=== PATIENT | male | born 1965 | race African-American/Black ===

== ENCOUNTER 2019-04-04 10:17 | Emergency (ER) | payer MEDICAID ==
[~2019-04-04] VITALS: Ht 170.2 cm; Wt 70.5 kg
[~2019-04-04 10:17] MED LIST: NOCURR
[2019-04-04] MEDS ORDERED: IBUPROFEN 600 MG TABLET PO ONE (11:15)
[2019-04-04 13:20] VITALS: BP 134/77
== END 2019-04-04 13:23 | disposition home or self-care (01) ==
LOC: EMS 10:18
DX: Z02.89 Encounter for other administrative examinations (principal); S30.810A Abrasion of lower back and pelvis, initial encounter; I10 Essential (primary) hypertension; F32.9 Major depressive disorder, single episode, unspecified; F14.90 Cocaine use, unspecified, uncomplicated; Z59.0 Homelessness; V19.9XXA Pedal cyclist (driver) (passenger) injured in unspecified traffic accident, initial encounter; Y93.89 Activity, other specified; Y92.89 Other specified places as the place of occurrence of the external cause; Y99.8 Other external cause status
CPT/HCPCS: 72170

== ENCOUNTER 2019-12-14 15:48 | Emergency (ER) | payer MEDICAID ==
[~2019-12-14] VITALS: Ht 180.3 cm; Wt 77.3 kg
[2019-12-14 17:29] LABS: BASOPHILS % (AUTO) 0.6 % (0.0-2.0); EOSINOPHILS % (AUTO) 0 % (1.0-6.0); HEMOGLOBIN 17.3 g/dL (13.5-17.5); LYMPHOCYTES # (AUTO) 0.9 K/uL (1.0-4.8); LYMPHOCYTES % (AUTO) 9.1 % (22.0-44.0); MEAN CORPUSCULAR HEMOGLOBIN 34.5 pg (26.0-34.0); MEAN CORPUSCULAR HGB CONC 32.7 G/dL (31.0-37.0); MEAN CORPUSCULAR VOLUME 105 fL (80-100); MONOCYTES # (AUTO) 0.6 K/uL (0.1-1.0); MONOCYTES % (AUTO) 6.2 % (2.0-9.0); NEUTROPHILS # (AUTO) 8.5 K/uL (1.8-7.7); NEUTROPHILS % (AUTO) 84.1 % (40.0-70.0); PLATELET COUNT (AUTO) 284 K/uL (150-450); RED BLOOD CELL COUNT(AUTO) 5.03 MIL/uL (4.50-5.90)
[2019-12-14 17:39] LABS: APPEARANCE,URINE CLEAR (CLEAR); BILIRUBIN,URINE NEGATIVE (NEGATIVE); GLUCOSE, URINE (UA) NEGATIVE (NEGATIVE); KETONES,URINE NEGATIVE (NEGATIVE); LEUKOCYTE ESTERASE ,URINE SMALL (NEGATIVE); NITRATE,URINE NEGATIVE (NEGATIVE); OCCULT BLOOD,URINE SMALL (NEGATIVE); PROTEIN,URINE SEE CONFIRM (NEGATIVE)
[2019-12-14 17:40] LABS: CALCIUM, TOTAL 9.3 mg/dL (8.8-10.5); CREATININE 2.65 mg/dL (0.60-1.30); POTASSIUM 4.6 mmol/L (3.5-5.1)
[2019-12-14 17:44] LABS: SULFOSALICYLIC ACID,URINE 3+ (Negative)
[2019-12-14 17:45] LABS: ALBUMIN 3.1 g/dL (3.4-5.0); BILIRUBIN,TOTAL 2.9 mg/dL (0.1-1.0); TOTAL PROTEIN, SERUM 6.9 g/dL (6.4-8.2)
[2019-12-14 17:46] LABS: BACTERIA,URINE Rare /HPF (None Seen); RBC,URINE 0-2 /HPF (0-2); SQUAMOUS EPITHELIAL CELL,UR Few /LPF (None Seen)
[2019-12-14] MEDS ORDERED: FUROSEMIDE 20 MG TABLET PO ONE (18:00)
[2019-12-14 18:13] VITALS: BP 150/113
== END 2019-12-14 19:11 | disposition home or self-care (01) ==
LOC: EMS 15:50
DX: I12.9 Hypertensive chronic kidney disease with stage 1 through stage 4 chronic kidney disease, or unspecified chronic kidney disease (principal); N18.9 Chronic kidney disease, unspecified; R60.0 Localized edema; R80.9 Proteinuria, unspecified; R74.0 Nonspecific elevation of levels of transaminase and lactic acid dehydrogenase [LDH]; F14.90 Cocaine use, unspecified, uncomplicated; F32.9 Major depressive disorder, single episode, unspecified; Z59.0 Homelessness
CPT/HCPCS: 87086; 93970

== ENCOUNTER 2019-12-16 10:41 | Emergency (ER) | payer MEDICAID ==
[~2019-12-16] VITALS: Ht 180.3 cm; Wt 77.3 kg
[2019-12-16] MEDS ORDERED: UNK DIURETIC PO (10:42)
[2019-12-16 10:43] VITALS: BP 156/86
== END 2019-12-16 13:19 | disposition left against medical advice (07) ==
LOC: EMS 10:41
DX: R60.0 Localized edema (principal); F32.9 Major depressive disorder, single episode, unspecified; F14.10 Cocaine abuse, uncomplicated; I10 Essential (primary) hypertension; Z76.0 Encounter for issue of repeat prescription; Z59.0 Homelessness

== ENCOUNTER 2021-03-23 18:47 | Inpatient (IN) | payer MEDICAID ==
[~2021-03-23] VITALS: Ht 180.3 cm; Wt 75.2 kg
[~2021-03-23 18:47] MED LIST changes: +UNK DIURETIC PO
[2021-03-23 19:37] LABS: APPEARANCE,URINE TURBID (CLEAR); BILIRUBIN,URINE NEGATIVE (NEGATIVE); GLUCOSE, URINE (UA) NEGATIVE (NEGATIVE); KETONES,URINE NEGATIVE (NEGATIVE); LEUKOCYTE ESTERASE ,URINE LARGE (NEGATIVE); NITRATE,URINE POSITIVE (NEGATIVE); OCCULT BLOOD,URINE SMALL (NEGATIVE); PROTEIN,URINE SEE CONFIRM (NEGATIVE)
[2021-03-23 19:52] LABS: BACTERIA,URINE Many /HPF (None Seen); RBC,URINE 0-2 /HPF (0-2); SULFOSALICYLIC ACID,URINE 1+ (Negative); WBC,URINE >100 /HPF (0-5)
[2021-03-23 19:53] LABS: SQUAMOUS EPITHELIAL CELL,UR Rare /LPF (None Seen)
[2021-03-23 20:04] LABS: BASOPHILS % (AUTO) 0.7 % (0.0-2.0); EOSINOPHILS % (AUTO) 0.9 % (1.0-6.0); HEMATOCRIT 34.5 % (41-53); HEMOGLOBIN 11.4 g/dL (13.5-17.5); LYMPHOCYTES # (AUTO) 1.3 K/uL (1.0-4.8); LYMPHOCYTES % (AUTO) 21.9 % (22.0-44.0); MEAN CORPUSCULAR HEMOGLOBIN 36.1 pg (26.0-34.0); MEAN CORPUSCULAR HGB CONC 32.9 G/dL (31.0-37.0); MEAN CORPUSCULAR VOLUME 110 fL (80-100); MONOCYTES # (AUTO) 0.5 K/uL (0.1-1.0); NEUTROPHILS # (AUTO) 4.2 K/uL (1.8-7.7); NEUTROPHILS % (AUTO) 68.5 % (40.0-70.0); PLATELET COUNT (AUTO) 303 K/uL (150-450); RED BLOOD CELL COUNT(AUTO) 3.14 MIL/uL (4.50-5.90); RED CELL DISTRIBUTION WIDTH 14.1 % (11.5-14.5)
[2021-03-23] MEDS ORDERED: CefTRIAXone 1 GM/DEXTROSE 50 ML IV ONE (20:15)
[2021-03-23 20:18] LABS: INR 1.1 (0.9-1.1); PROTHROMBIN TIME 11.4 SEC (9.4-11.6)
[2021-03-23 20:19] LABS: CALCIUM, TOTAL 8.6 mg/dL (8.8-10.5); CREATININE 2.61 mg/dL (0.60-1.30); POTASSIUM 3.9 mmol/L (3.5-5.1)
[2021-03-23 20:25] LABS: ALBUMIN 3.3 g/dL (3.4-5.0); BILIRUBIN,TOTAL 1.1 mg/dL (0.1-1.0); TOTAL PROTEIN, SERUM 7.6 g/dL (6.4-8.2)
[2021-03-23] MEDS ORDERED: FUROSEMIDE 40 MG/4 ML VIAL IVP ONE (21:00)
[2021-03-23 21:10] LABS: COVID AG,FIA SOURCE NASAL SWAB
[2021-03-23] MEDS ORDERED: HYDROCODONE/ACETAMINOPHEN 5-325 MG TABLET PO PRN (21:45)
[2021-03-23] MEDS ORDERED: ZOLPIDEM TARTRATE 5 MG TABLET PO PRN (21:45)
[2021-03-23] MEDS ORDERED: MORPHINE SULFATE 2 MG/ML SYRINGE IVP PRN (21:45)
[2021-03-23] MEDS ORDERED: ONDANSETRON HCL 4 MG/2 ML VIAL IVP PRN (21:45)
[2021-03-23] MEDS ORDERED: MAGNESIUM HYDROXIDE SUSPENSION 30 ML UDCUP PO PRN (21:45)
[2021-03-23] MEDS ORDERED: BISACODYL 10 MG RECTAL RECTAL SUPPOSITORY PR PRN (21:45)
[2021-03-23] MEDS ORDERED: ACETAMINOPHEN 325 MG TABLET PO PRN (21:45)
[2021-03-23] MEDS ORDERED: CARVEDILOL 3.125 MG TABLET PO ONE (22:30)
[2021-03-24 00:08] VITALS: BP 130/86
[2021-03-24] MEDS: HEPARIN SODIUM,PORCINE 5,000 UNITS/ML VIAL SQ SCH ×3 (01:06→16:00)
[2021-03-24] MEDS ORDERED: PNEUMOCOCCAL VACCINE POLYVALENT 0.5 ML VIAL [PPSV23] IM. ONE (01:45)
[2021-03-24 04:10] VITALS: BP 152/89
[2021-03-24 06:19] LABS: BASOPHILS % (AUTO) 0.6 % (0.0-2.0); EOSINOPHILS % (AUTO) 1.3 % (1.0-6.0); HEMATOCRIT 34.7 % (41-53); HEMOGLOBIN 11.5 g/dL (13.5-17.5); LYMPHOCYTES # (AUTO) 1.6 K/uL (1.0-4.8); LYMPHOCYTES % (AUTO) 24.5 % (22.0-44.0); MEAN CORPUSCULAR HEMOGLOBIN 35.9 pg (26.0-34.0); MEAN CORPUSCULAR HGB CONC 33.1 G/dL (31.0-37.0); MEAN CORPUSCULAR VOLUME 108 fL (80-100); MONOCYTES # (AUTO) 0.6 K/uL (0.1-1.0); MONOCYTES % (AUTO) 8.8 % (2.0-9.0); NEUTROPHILS # (AUTO) 4.1 K/uL (1.8-7.7); NEUTROPHILS % (AUTO) 64.8 % (40.0-70.0); PLATELET COUNT (AUTO) 292 K/uL (150-450)
[2021-03-24 06:33] LABS: CALCIUM, TOTAL 8.2 mg/dL (8.8-10.5); CREATININE 2.36 mg/dL (0.60-1.30); POTASSIUM 4.1 mmol/L (3.5-5.1)
[2021-03-24 07:45] VITALS: BP 164/97
[2021-03-24] MEDS: ASPIRIN 81 MG DR TABLET PO SCH (08:52)
[2021-03-24] MEDS: CARVEDILOL 6.25 MG TABLET PO SCH ×2 (08:52→20:57)
[2021-03-24] MEDS: DOCUSATE SODIUM 100 MG CAPSULE PO SCH ×2 (08:52→20:57)
[2021-03-24] MEDS: PANTOPRAZOLE SODIUM 40 MG DR TABLET PO SCH (08:52)
[2021-03-24] MEDS: LISINOPRIL 5 MG TABLET PO SCH (08:53)
[2021-03-24] MEDS: FUROSEMIDE 20 MG/2 ML VIAL IVP SCH ×2 (09:00→20:58)
[2021-03-24] MEDS ORDERED: CARVEDILOL 6.25 MG TABLET PO SCH (09:00)
[2021-03-24 11:30] VITALS: BP 160/86
[2021-03-24 16:11] VITALS: BP 159/98
[2021-03-24 20:16] VITALS: BP 142/92
[2021-03-24] MEDS: CefTRIAXone 1 GM/DEXTROSE 50 ML IV SCH (20:57)
[2021-03-24] MEDS ORDERED: SODIUM CHLORIDE 0.9% 250 ML IV ONE (21:03)
[2021-03-25] MEDS: HEPARIN SODIUM,PORCINE 5,000 UNITS/ML VIAL SQ SCH ×3 (00:12→16:00)
[2021-03-25 00:30] VITALS: BP 139/64
[2021-03-25 04:10] VITALS: BP 150/98
[2021-03-25 07:00] LABS: BASOPHILS % (AUTO) 0.6 % (0.0-2.0); EOSINOPHILS % (AUTO) 1.4 % (1.0-6.0); HEMATOCRIT 36.7 % (41-53); HEMOGLOBIN 12.1 g/dL (13.5-17.5); LYMPHOCYTES # (AUTO) 1.2 K/uL (1.0-4.8); LYMPHOCYTES % (AUTO) 21.8 % (22.0-44.0); MEAN CORPUSCULAR HEMOGLOBIN 36.1 pg (26.0-34.0); MEAN CORPUSCULAR HGB CONC 33.1 G/dL (31.0-37.0); MEAN CORPUSCULAR VOLUME 109 fL (80-100); MONOCYTES # (AUTO) 0.5 K/uL (0.1-1.0); MONOCYTES % (AUTO) 9.4 % (2.0-9.0); NEUTROPHILS # (AUTO) 3.8 K/uL (1.8-7.7); NEUTROPHILS % (AUTO) 66.8 % (40.0-70.0); PLATELET COUNT (AUTO) 286 K/uL (150-450); RED BLOOD CELL COUNT(AUTO) 3.36 MIL/uL (4.50-5.90); RED CELL DISTRIBUTION WIDTH 13.8 % (11.5-14.5)
[2021-03-25 07:21] LABS: CALCIUM, TOTAL 8.1 mg/dL (8.8-10.5); CREATININE 1.97 mg/dL (0.60-1.30); POTASSIUM 4.2 mmol/L (3.5-5.1)
[2021-03-25 07:22] VITALS: BP 156/89
[2021-03-25] MEDS: PANTOPRAZOLE SODIUM 40 MG DR TABLET PO SCH (08:38)
[2021-03-25] MEDS: ASPIRIN 81 MG DR TABLET PO SCH (08:38)
[2021-03-25] MEDS: CARVEDILOL 6.25 MG TABLET PO SCH ×2 (08:38→20:22)
[2021-03-25] MEDS: DOCUSATE SODIUM 100 MG CAPSULE PO SCH ×2 (08:38→21:00)
[2021-03-25] MEDS: LISINOPRIL 5 MG TABLET PO SCH (08:38)
[2021-03-25] MEDS: FUROSEMIDE 20 MG/2 ML VIAL IVP SCH ×2 (08:38→21:00)
[2021-03-25 11:12] VITALS: BP 124/71
[2021-03-25 13:20] LABS: AMPHET/METH SCREEN,URINE NEGATIVE (NEGATIVE); BARBITURATE SCREEN, URINE NEGATIVE (NEGATIVE); BENZODIAZEPINES SCREEN,URINE NEGATIVE (NEGATIVE); CANNABINOID SCREEN,URINE NEGATIVE (NEGATIVE); COCAINE SCREEN,URINE POSITIVE (NEGATIVE); METHADONE SCREEN, URINE NEGATIVE (NEGATIVE); OPIATE SCREEN,URINE NEGATIVE (NEGATIVE)
[2021-03-25 13:21] LABS: PHENCYCLIDINE SCREEN,URINE NEGATIVE (NEGATIVE)
[2021-03-25 15:17] VITALS: BP 132/80
[2021-03-25 20:17] VITALS: BP 145/77
[2021-03-25] MEDS: CefTRIAXone 1 GM/DEXTROSE 50 ML IV SCH (20:22)
[2021-03-26] MEDS: HEPARIN SODIUM,PORCINE 5,000 UNITS/ML VIAL SQ SCH ×3 (00:03→15:06)
[2021-03-26 00:44] VITALS: BP 136/73
[2021-03-26 04:31] VITALS: BP 138/80
[2021-03-26 05:25] LABS: BASOPHILS % (AUTO) 0.5 % (0.0-2.0); EOSINOPHILS % (AUTO) 1.4 % (1.0-6.0); HEMATOCRIT 35.1 % (41-53); HEMOGLOBIN 11.4 g/dL (13.5-17.5); LYMPHOCYTES # (AUTO) 1.4 K/uL (1.0-4.8); LYMPHOCYTES % (AUTO) 23.7 % (22.0-44.0); MEAN CORPUSCULAR HEMOGLOBIN 35.5 pg (26.0-34.0); MEAN CORPUSCULAR HGB CONC 32.5 G/dL (31.0-37.0); MEAN CORPUSCULAR VOLUME 109 fL (80-100); MONOCYTES # (AUTO) 0.5 K/uL (0.1-1.0); MONOCYTES % (AUTO) 8.6 % (2.0-9.0); NEUTROPHILS % (AUTO) 65.8 % (40.0-70.0); PLATELET COUNT (AUTO) 267 K/uL (150-450); RED BLOOD CELL COUNT(AUTO) 3.21 MIL/uL (4.50-5.90); RED CELL DISTRIBUTION WIDTH 14.2 % (11.5-14.5)
[2021-03-26 06:01] LABS: CALCIUM, TOTAL 8.2 mg/dL (8.8-10.5); CREATININE 1.72 mg/dL (0.60-1.30); POTASSIUM 4.1 mmol/L (3.5-5.1)
[2021-03-26 07:19] VITALS: BP 148/99
[2021-03-26] MEDS: DOCUSATE SODIUM 100 MG CAPSULE PO SCH ×2 (08:38→20:43)
[2021-03-26] MEDS: PANTOPRAZOLE SODIUM 40 MG DR TABLET PO SCH (08:39)
[2021-03-26] MEDS: LISINOPRIL 5 MG TABLET PO SCH (08:39)
[2021-03-26] MEDS: ASPIRIN 81 MG DR TABLET PO SCH (08:39)
[2021-03-26] MEDS: CARVEDILOL 6.25 MG TABLET PO SCH ×2 (08:39→20:44)
[2021-03-26] MEDS: FUROSEMIDE 20 MG/2 ML VIAL IVP SCH ×2 (08:40→20:44)
[2021-03-26 11:22] VITALS: BP 133/74
[2021-03-26 15:22] VITALS: BP 140/72
[2021-03-26] MEDS: CefoTEtan DISOD 1 GM/DEXTROSE 50 ML IV SCH (18:16)
[2021-03-26 20:00] VITALS: BP 132/75
[2021-03-27 01:07] VITALS: BP 114/69
[2021-03-27 04:35] VITALS: BP 126/66
[2021-03-27] MEDS: CefoTEtan DISOD 1 GM/DEXTROSE 50 ML IV SCH ×2 (05:16→16:29)
[2021-03-27 07:13] VITALS: BP 146/100
[2021-03-27] MEDS: HEPARIN SODIUM,PORCINE 5,000 UNITS/ML VIAL SQ SCH ×3 (08:14→16:29)
[2021-03-27] MEDS: FUROSEMIDE 20 MG/2 ML VIAL IVP SCH ×2 (08:14→20:24)
[2021-03-27] MEDS: LISINOPRIL 5 MG TABLET PO SCH (08:15)
[2021-03-27] MEDS: PANTOPRAZOLE SODIUM 40 MG DR TABLET PO SCH (08:15)
[2021-03-27] MEDS: ASPIRIN 81 MG DR TABLET PO SCH (08:15)
[2021-03-27] MEDS: CARVEDILOL 6.25 MG TABLET PO SCH ×2 (08:15→20:20)
[2021-03-27] MEDS: DOCUSATE SODIUM 100 MG CAPSULE PO SCH ×2 (08:15→20:20)
[2021-03-27 16:07] VITALS: BP 125/83
[2021-03-27 19:20] VITALS: BP 108/64
[2021-03-27 23:36] VITALS: BP 100/62
[2021-03-28] MEDS: HEPARIN SODIUM,PORCINE 5,000 UNITS/ML VIAL SQ SCH ×3 (00:24→16:35)
[2021-03-28 04:31] VITALS: BP 132/96
[2021-03-28] MEDS: CefoTEtan DISOD 1 GM/DEXTROSE 50 ML IV SCH ×2 (04:57→16:34)
[2021-03-28 07:37] VITALS: BP 143/93
[2021-03-28] MEDS: FUROSEMIDE 20 MG/2 ML VIAL IVP SCH (08:34)
[2021-03-28] MEDS: LISINOPRIL 5 MG TABLET PO SCH (08:34)
[2021-03-28] MEDS: DOCUSATE SODIUM 100 MG CAPSULE PO SCH ×2 (08:34→21:00)
[2021-03-28] MEDS: CARVEDILOL 6.25 MG TABLET PO SCH ×2 (08:34→21:00)
[2021-03-28] MEDS: ASPIRIN 81 MG DR TABLET PO SCH (08:34)
[2021-03-28] MEDS: PANTOPRAZOLE SODIUM 40 MG DR TABLET PO SCH (09:50)
[2021-03-28 12:00] VITALS: BP 141/83
[2021-03-28] MEDS ORDERED: CARV6 PO (12:19)
[2021-03-28] MEDS ORDERED: ASPI-1450 PO (12:19)
[2021-03-28] MEDS ORDERED: FURO40 PO (12:19)
[2021-03-28] MEDS ORDERED: BACTDSB PO (12:20)
[2021-03-28] MEDS ORDERED: LISI-892 PO (12:20)
[2021-03-28 15:47] VITALS: BP 136/74
[2021-03-28 19:48] VITALS: BP 124/65
[2021-03-28 23:47] VITALS: BP 108/68
[2021-03-29 04:37] VITALS: BP 146/74
[2021-03-29] MEDS: CefoTEtan DISOD 1 GM/DEXTROSE 50 ML IV SCH ×2 (05:18→16:53)
[2021-03-29 07:33] VITALS: BP 142/79
[2021-03-29] MEDS: CARVEDILOL 6.25 MG TABLET PO SCH (08:15)
[2021-03-29] MEDS: DOCUSATE SODIUM 100 MG CAPSULE PO SCH ×2 (08:15→20:36)
[2021-03-29] MEDS: ASPIRIN 81 MG DR TABLET PO SCH (08:15)
[2021-03-29] MEDS: PANTOPRAZOLE SODIUM 40 MG DR TABLET PO SCH (08:15)
[2021-03-29] MEDS: LISINOPRIL 5 MG TABLET PO SCH (08:15)
[2021-03-29] MEDS: FUROSEMIDE 40 MG TABLET PO SCH (08:16)
[2021-03-29] MEDS: HEPARIN SODIUM,PORCINE 5,000 UNITS/ML VIAL SQ SCH ×3 (08:16→16:53)
[2021-03-29 11:44] VITALS: BP 132/76
[2021-03-29 15:32] VITALS: BP 126/77
[2021-03-29 20:36] VITALS: BP 134/79
[2021-03-29] MEDS: CARVEDILOL 12.5 MG TABLET PO SCH (20:36)
[2021-03-30] VITALS (7 sets, daily range): BP systolic 142–157; BP diastolic 73–91
[2021-03-30] MEDS: CefoTEtan DISOD 1 GM/DEXTROSE 50 ML IV SCH ×2 (06:40→17:43)
[2021-03-30] MEDS: HEPARIN SODIUM,PORCINE 5,000 UNITS/ML VIAL SQ SCH ×4 (08:18→23:02)
[2021-03-30] MEDS: CARVEDILOL 12.5 MG TABLET PO SCH ×2 (08:19→20:41)
[2021-03-30] MEDS: PANTOPRAZOLE SODIUM 40 MG DR TABLET PO SCH (08:19)
[2021-03-30] MEDS: DOCUSATE SODIUM 100 MG CAPSULE PO SCH ×2 (08:19→20:42)
[2021-03-30] MEDS: ASPIRIN 81 MG DR TABLET PO SCH (08:19)
[2021-03-30] MEDS: FUROSEMIDE 40 MG TABLET PO SCH (08:19)
[2021-03-30] MEDS: LISINOPRIL 5 MG TABLET PO SCH (08:20)
[2021-03-31] MEDS: CefoTEtan DISOD 1 GM/DEXTROSE 50 ML IV SCH ×2 (03:54→16:52)
[2021-03-31 04:31] VITALS: BP 140/73
[2021-03-31 07:48] VITALS: BP 151/91
[2021-03-31] MEDS: DOCUSATE SODIUM 100 MG CAPSULE PO SCH ×2 (08:23→22:36)
[2021-03-31] MEDS: ASPIRIN 81 MG DR TABLET PO SCH (08:23)
[2021-03-31] MEDS: PANTOPRAZOLE SODIUM 40 MG DR TABLET PO SCH (08:24)
[2021-03-31] MEDS: LISINOPRIL 5 MG TABLET PO SCH (08:24)
[2021-03-31] MEDS: CARVEDILOL 12.5 MG TABLET PO SCH ×2 (08:24→22:36)
[2021-03-31] MEDS: HEPARIN SODIUM,PORCINE 5,000 UNITS/ML VIAL SQ SCH ×2 (08:32→16:52)
[2021-03-31] MEDS: FUROSEMIDE 40 MG TABLET PO SCH (08:33)
[2021-03-31 11:29] VITALS: BP 137/74
[2021-03-31 15:22] LABS: CALCIUM, TOTAL 8.7 mg/dL (8.8-10.5); CREATININE 1.5 mg/dL (0.60-1.30); POTASSIUM 4.5 mmol/L (3.5-5.1)
[2021-03-31 15:48] VITALS: BP 147/88
[2021-03-31 19:39] VITALS: BP 150/88
[2021-04-01] MEDS: HEPARIN SODIUM,PORCINE 5,000 UNITS/ML VIAL SQ SCH ×2 (00:01→08:19)
[2021-04-01 00:15] VITALS: BP 144/79
[2021-04-01 05:02] VITALS: BP 147/77
[2021-04-01] MEDS: CefoTEtan DISOD 1 GM/DEXTROSE 50 ML IV SCH (06:08)
[2021-04-01 07:33] VITALS: BP 151/104
[2021-04-01] MEDS: ASPIRIN 81 MG DR TABLET PO SCH (08:18)
[2021-04-01] MEDS: FUROSEMIDE 40 MG TABLET PO SCH (08:18)
[2021-04-01] MEDS: DOCUSATE SODIUM 100 MG CAPSULE PO SCH (08:19)
[2021-04-01] MEDS: PANTOPRAZOLE SODIUM 40 MG DR TABLET PO SCH (08:19)
[2021-04-01] MEDS: LISINOPRIL 5 MG TABLET PO SCH (08:20)
[2021-04-01] MEDS: CARVEDILOL 12.5 MG TABLET PO SCH (08:20)
[2021-04-01 11:18] VITALS: BP 141/81
== END 2021-04-01 14:15 | disposition home or self-care (01) | DRG 816 ==
LOC: EMS 18:49 → UNDOADMIN 21:40 → 5S 21:40 → 6N 21:40
PROVIDERS: ADMIT Internal Medicine; ATTEND Internal Medicine
DX: T40.5X1A Poisoning by cocaine, accidental (unintentional), initial encounter (principal); G92 Toxic encephalopathy; E44.0 Moderate protein-calorie malnutrition; I50.21 Acute systolic (congestive) heart failure; N17.9 Acute kidney failure, unspecified; I13.0 Hypertensive heart and chronic kidney disease with heart failure and stage 1 through stage 4 chronic kidney disease, or unspecified chronic kidney disease; N18.30 Chronic kidney disease, stage 3 unspecified; F32.9 Major depressive disorder, single episode, unspecified; N39.0 Urinary tract infection, site not specified; B96.20 Unspecified Escherichia coli [E. coli] as the cause of diseases classified elsewhere; F14.90 Cocaine use, unspecified, uncomplicated; Z20.822 Contact with and (suspected) exposure to COVID-19; Z16.12 Extended spectrum beta lactamase (ESBL) resistance; E78.5 Hyperlipidemia, unspecified; D64.9 Anemia, unspecified; Z59.0 Homelessness; Z91.14 Patient's other noncompliance with medication regimen; Z79.899 Other long term (current) drug therapy; Z91.19 Patient's noncompliance with other medical treatment and regimen; Z68.23 Body mass index [BMI] 23.0-23.9, adult
CPT/HCPCS: 71045; 80048; 80053; 80307; 81001; 81002; 83880; 84484; 85025; 85610; 85730; 87077; 87086; 87186; 93005; 93306; 99285; G0378; J0696; J1644; J1940; J3490; J7050; 36415-L1; 36415-TC